=== PATIENT | male | born 1950 | race Caucasian/White ===

== ENCOUNTER 2018-08-03 08:32 | Outpatient (CLI) | payer MEDICARE, OTHER ==
--- NOTE | 2018-08-03 10:37 | ULT ---
GALLBLADDER ULTRASOUND: CLINICALLY INDICATIONS: Epigastric pain. FINDINGS: No acute gallbladder pathology of focal hepatic lesion. Within the right kidney, there is a mildly c omplex appearing cyst, approximately 1.8 cm in diameter. No ascites. The common duct is normal, oma suring 4 mm. IMPRESSION: 1. No acute gallbladder pathology. 2. Incidental note of a mildly complex right renal cyst. Recommend a dedicated follow-up renal ultrasound to further evaluate. CODE T POS: TPC
== END 2018-08-03 08:33 | disposition home or self-care (01) ==
LOC: BICULT 08:32
PROVIDERS: ATTEND Family Medicine
DX: R10.13 Epigastric pain (principal)
CPT/HCPCS: 76705

== ENCOUNTER 2018-08-17 07:12 | Outpatient (CLI) | payer MEDICARE, OTHER ==
--- NOTE | 2018-08-17 07:49 | ULT ---
FExam: Bilateral renal ultrasound HISTORY: Evaluate renal cyst COMPARISON: 08/03/2018, right upper quadrant ultrasound FINDINGS: Right kidney: Normal cortical echotexture. No hydronephrosis. Anechoic focus in the upper pole pelvis , measuring 1.7 x 1.5 x 1.7 cm, compatible with a cyst. Right kidney measurements: 11.4 x 6.0 x 6.2 cm Left kidney: Normal cortical echotexture. No hydronephrosis Left kidney measurements 12.9 x 5.8 x 6.1 cm Urinary bladder: Normal mucosa. IMPRESSION: 1. Stable slightly complex cyst in the right upper pole pelvis 2. No hydronephrosis
== END 2018-08-17 07:13 | disposition home or self-care (01) ==
LOC: BICULT 07:12
PROVIDERS: ATTEND Family Medicine
DX: N28.1 Cyst of kidney, acquired (principal)
CPT/HCPCS: 76770

== ENCOUNTER 2019-03-02 19:04 | Inpatient (IN) | payer MEDICARE, OTHER ==
--- NOTE | 2019-03-02 20:04 | RAD ---
Left hand, 3 view INDICATION: Wound, edema FINDINGS: Soft tissue prominence and air density is present involving the left hand. No evidence of u nderlying osseous destructive lesion. No radiopaque foreign body is visualized. IMPRESSION: Findings indicative of soft tissue infection of the left hand with air density. Recommend clinical co rrelation. No underlying osseous destructive lesion visualized. Transcribed Date/Time: 03/02/2019 8:09 PM
[2019-03-02] MEDS ORDERED: Morphine 4 MG/ML VIAL ONE (20:06)
[2019-03-02] MEDS ORDERED: cefTRIAXone\\ROCEPHIN 1 GM VIAL ONE (20:06)
[2019-03-02 20:10] LABS: #Eosinphils 0.1 thou/uL (0.0-0.7); #Lymphocytes 1.6 thou/uL (1.20-3.40); #Monocytes 0.9 thou/uL (0.11-0.59); #Neutrophils 7.9 thou/uL (1.40-6.50); %Basophils 0.1 % (0.0-1.0); %Eosinophils 1.1 % (0.0-10.0); %Lymphocytes 14.9 % (21.0-51.0); %Monocytes 8.2 % (0.0-10.0); %Neutrophils 75.7 % (42.0-75.0); Hemoglobin 16.3 g/dL (14.0-18.0); Mean Corpuscular HGB CONC 35.3 g/dL (32.0-36.0); Mean Corpuscular Hemoglobin 32.8 pg (27.0-31.0); Mean Platelet Volume 7.3 fL (7.4-10.4); Platelet Count 231 thou/uL (130-400); RBC Distribution Width 12.2 % (11.5-14.5); Red Blood Cell (RBC) Count 4.96 mill/uL (4.70-6.10); White Blood Cell (WBC) Count 10.5 thou/uL (4.8-10.8)
[2019-03-02 20:32] LABS: ALT (SGPT) 28 U/L (8-55); AST (SGOT) 26 U/L (5-34); Albumin 4.6 g/dL (3.4-4.8); Alkaline Phosphatase 50 U/L (40-110); Anion Gap 13 mmol/L (10-20); BUN (Urea Nitrogen) 11 mg/dL (8.4-25.7); Calc. Creatinine Clearance 0 mL/min (70-130); Calcium 9.5 mg/dL (7.8-10.44); Carbon Dioxide 23 mmol/L (23-31); Chloride 101 mmol/L (98-107); Estimated GFR-MDRD 89; Glucose 127 mg/dL (80-115); Potassium 3.2 mmol/L (3.5-5.1); Protein, Total 7.6 g/dL (5.8-8.1); Sodium 134 mmol/L (136-145)
[2019-03-02] MEDS ORDERED: Ondansetron ODT 4 MG TAB SL PRN (22:16)
[2019-03-02] MEDS ORDERED: Ondansetron PF 4 MG/2 ML Vial IVP PRN ×2 (22:16→23:16)
[2019-03-02] MEDS ORDERED: Morphine 4 MG/ML VIAL SLOW IVP PRN (22:18)
[2019-03-02 22:22] VITALS: BMI 29.5
[2019-03-02] MEDS ORDERED: Potassium Chloride 20 MEQ in Premix Bag 1 BAG IVPB SCH (23:00)
[2019-03-02] MEDS ORDERED: Ondansetron ODT 4 MG TAB PO PRN (23:16)
[2019-03-02] MEDS ORDERED: Vancomycin HCl 1 GM in Premix Bag 1 BAG IVPB SCH (23:30)
--- NOTE | 2019-03-03 00:30 | HP ---
TIME OF ASSESSMENT: 2199. PRIMARY CARE PHYSICIAN: Dudley Haile MD. REASON FOR ADMISSION: Left hand cellulitis. HISTORY OF PRESENT ILLNESS: Mr. Camara is a pleasant 68-year-old gentleman who presents after sustaining a puncture wound to the thenar aspect of the left hand yesterday. He woke up this morning with left hand swelling and redness. He was seen at an urgent care facility this morning and treated with Rocephin IM, also given a prescription for Bactrim and rifampin. The patient was advised to come into the emergency department if his symptoms worsen. As the day went on, the patient reports noting progressive worsening of the swelling causing the volar aspect to have a purple appearance. He reports redness extending up his arm towards to his elbow and then eventually extending further up his arm towards the axilla. The patient reports feeling generally unwell with fatigue, malaise, and nausea. He opted to come to the emergency department and on arrival was noted to have a low-grade temperature of 99.5. Otherwise, vital signs were normal. The patient states he did have a temperature of 100.5 at home. He underwent laboratory studies which showed a normal white blood cell count, however, he did have a have left shift with neutrophils of 75.7. Lactic acid was normal at 0.9. He underwent an x-ray of the left hand showing findings indicative of soft tissue infection of the left hand with air density. No underlying osseous destructive lesions present. He was started on IV antibiotics with vancomycin and Rocephin. Also given IV morphine for pain. The case was discussed with Dr. Hidalgo who advised to continue with IV antibiotics with plans to assess the patient in the morning. Case was discussed between Dr. Adhikari and Dr. Monzon of [facility]. REVIEW OF SYSTEMS: Apart from those mentioned above in HPI, the patient states he has otherwise felt well. Denies any vomiting. No chest pain, palpitations, or shortness of breath. Reports having a good appetite. Denies any abdominal pain or cramping. No headaches or dizziness. Has been moving his bowels as normal. No urinary symptoms. All other review of systems are negative. Of note, he denies having any altered sensation in hand and the pain has significantly improved. His general fatigue and malaise have also improved significantly since receiving treatment in the emergency department. PAST MEDICAL HISTORY: 1. Hypertension. 2. GERD. 3. Arthropathy. 4. Previous smoker. PAST SURGICAL HISTORY: 1. Esophageal dilation. 2. Foot surgery. SOCIAL HISTORY: The patient formally dipped, but quit 2 years ago. Denies any drug use. Reports rare alcohol consumption. ALLERGIES: NO KNOWN DRUG ALLERGIES. CURRENT MEDICATIONS: 1. Losartan/Hydrochlorothiazide. 2. Naproxen. 3. Bactrim. 4. Rifampin. 5. Mupirocin. PHYSICAL EXAMINATION: GENERAL: The patient appears well developed, well nourished, is in no acute distress. VITAL SIGNS: Temperature 99.1, pulse 63, respirations 18, O2 saturation 96% on room air, blood pressure 141/90. HEENT: Normocephalic and atraumatic. Pupils are equal, round, reactive to light. Sclerae without icterus. Oropharynx is clear. NECK: Supple without lymphadenopathy. LUNGS: Clear to auscultation bilaterally without wheezes, rales, or rhonchi. CARDIAC: Regular rate and rhythm without audible murmurs, rubs, or gallops. ABDOMEN: Soft, nontender, nondistended. Normoactive bowel sounds present. EXTREMITIES: Left upper extremity notable for redness, swelling of the left hand involving the third through fifth metatarsal region with a puncture wound on the hypothenar eminence. No discharge or drainage. No bleeding. Sensation intact. Erythema extending up along the ulnar aspect towards the elbow with slight streaking along the mid inner arm. NEUROLOGIC: Sensation intact. Alert and oriented x3. No neuro deficits. LABORATORY DATA: White blood count 10.5, hemoglobin 16.3, hematocrit 46.1, platelets 231, neutrophils 75.7%. Sodium 134, potassium 3.2, BUN 11, creatinine 0.86, GFR 89, glucose 127, lactic acid 0.9, total bilirubin 2, AST 26, ALT 28, alkaline phosphatase 50. CRP 8.07, albumin 4.6. IMAGING STUDIES: As mentioned above in HPI. IMPRESSION AND PLAN: Mr. Camara is a very pleasant 68-year-old gentleman who is being admitted for management of the following; 1. Left hand cellulitis. We will continue IV antibiotics. The patient will be seen by Dr. Hidalgo in the morning. Symptomatically significantly improved. We will repeat lactic acid with morning labs. 2. Hypertension. Monitor blood pressure and resume home medications once verified. 3. Hypokalemia. Potassium was 3.2. We will replace and monitor. We will add magnesium to labs done today. 4. Slight hyperbilirubinemia. Total bilirubin of 2.0. LFTs otherwise unremarkable. We will add on the lipase. The patient without any abdominal pain. We will repeat CMP with morning labs. 5. Gastroesophageal reflux disease. Famotidine 20 mg b.i.d. 6. Deep venous thrombosis prophylaxis. Mechanical sequential compression devices. 7. Code status is full. His surrogate decision maker is his , Cecilia Camara. The patient's case was discussed with Dr. Joel who agrees upon care as described above. Job ID: [id number]
[2019-03-03] MEDS ORDERED: Vancomycin HCl 1 GM in Premix Bag 1 BAG IVPB SCH (05:00)
[2019-03-03 05:32] LABS: #Eosinphils 0.2 thou/uL (0.0-0.7); #Lymphocytes 1.4 thou/uL (1.20-3.40); #Monocytes 0.7 thou/uL (0.11-0.59); %Basophils 0.3 % (0.0-1.0); %Eosinophils 2.3 % (0.0-10.0); %Lymphocytes 16.9 % (21.0-51.0); %Monocytes 8.3 % (0.0-10.0); %Neutrophils 72.2 % (42.0-75.0); Hemoglobin 15.4 g/dL (14.0-18.0); Mean Corpuscular HGB CONC 35.1 g/dL (32.0-36.0); Mean Corpuscular Hemoglobin 32.9 pg (27.0-31.0); Mean Corpuscular Volume 93.8 fL (78.0-98.0); Mean Platelet Volume 7.2 fL (7.4-10.4); Platelet Count 206 thou/uL (130-400); RBC Distribution Width 12.2 % (11.5-14.5); Red Blood Cell (RBC) Count 4.67 mill/uL (4.70-6.10); White Blood Cell (WBC) Count 8.3 thou/uL (4.8-10.8)
[2019-03-03 05:50] LABS: Lactic Acid 0.8 mmol/L (0.5-2.2)
[2019-03-03 05:54] LABS: ALT (SGPT) 23 U/L (8-55); AST (SGOT) 22 U/L (5-34); Albumin 4.1 g/dL (3.4-4.8); Alkaline Phosphatase 47 U/L (40-110); Anion Gap 12 mmol/L (10-20); BUN (Urea Nitrogen) 10 mg/dL (8.4-25.7); Bilirubin, Total 1.1 mg/dL (0.2-1.2); Calc. Creatinine Clearance 112 mL/min (70-130); Calcium 8.9 mg/dL (7.8-10.44); Carbon Dioxide 24 mmol/L (23-31); Chloride 102 mmol/L (98-107); Estimated GFR-MDRD 85; Globulin 2.8 g/dL (2.4-3.5); Glucose 109 mg/dL (80-115); Potassium 3.5 mmol/L (3.5-5.1); Protein, Total 6.9 g/dL (5.8-8.1); Sodium 134 mmol/L (136-145)
[2019-03-03] MEDS ORDERED: cefTRIAXone\\ROCEPHIN 1 GM VIAL ONE (09:15)
[2019-03-03] MEDS: cefTRIAXone\\ROCEPHIN 1 GM in Sodium Chloride 0.9% 100 ML IVPB SCH ×2 (09:18→20:49)
[2019-03-03] MEDS: Famotidine 20 MG TAB PO SCH ×2 (09:24→20:48)
--- NOTE | 2019-03-03 10:01 | CON ---
DATE OF CONSULTATION: This is August Beckwith PA-C dictating a report for Steve Hidalgo MD. HISTORY OF PRESENT ILLNESS: We were asked by the hospitalist to see the patient. The patient was golfing the other day, and on the 1st hole, hit his ball into the rough. He stuck his hand into the [place] grass and received a puncture wound to the left palm. Yesterday, he was quite swollen and had redness up into his axilla on that left arm, but today, the swelling is down quite a bit. He still has this tenderness to the palmar aspect where his puncture wound is at, but looking at the son, the antibiotics have definitely helped his swelling. He is able to make a fist now and he states he can see his knuckles where as yesterday he was unable to. His pain also has improved with antibiotics. No numbness, tingling, or sensory deficits in that left hand. PAST MEDICAL HISTORY: Hypertension, GERD, past smoker. PAST SURGICAL HISTORY: Esophageal dilation, foot surgery. SOCIAL HISTORY: Past chewing tobacco user. No illicit drug use and rare EtOH usage. ALLERGIES: NO KNOWN DRUG ALLERGIES. CURRENT MEDICATIONS: 1. Losartan/hydrochlorothiazide. 2. Naprosyn. 3. Bactrim. 4. Rifampin. 5. Mupirocin. REVIEW OF SYSTEMS: No chest pain or shortness of breath. No bowel or bladder problems. No respiratory issues. We discussed review of systems. His only complaint is left hand injury pain. This is first visit to the hospital in 50 years. Rest review of systems is negative. PHYSICAL EXAMINATION: GENERAL: Well-nourished, well-developed male, alert, pleasant, no acute distress. Speech clear. Affect pleasant. Answers questions appropriately. He is alert and oriented x3. HEENT: Normal exam. Face symmetric. Tongue midline. NECK: Supple. Trachea midline. RESPIRATORY: No distress. Respirations are 16. EXTREMITIES: Upper extremities; equal size, shape, and symmetry. Normal bulk and tone with exception of left upper extremity. He does have some swelling to the palmar aspect with an obvious puncture wound. The patient is able to shank pinner and extend his digits fairly well. No sensory deficits. He does have pain with palpation over that palmar aspect. His redness son to the upper extremity have diminished with antibiotics as has quite a bit of a swelling. ASSESSMENT: Wound infection, left palmar aspect secondary to [place] grass puncture. PLAN: I am going to discuss the case with Dr. Hidalgo. I told the patient we will keep him n.p.o. until Dr. Hidalgo sees the patient. He may need a debridement of that hand, but with the antibiotics helping, he may be able to forego that. The patient did put some peroxide on it after he removed the [place] grass and soaked his hand in some Epsom salts and remarkably he is able to finish his golf round even though he did this on the 1st hole. Surgical I and D discussed with the patient, but I will await Dr. Hidalgo evaluation. I did hold a spot in the OR for patient. Job ID: [id number]
[2019-03-03] MEDS: Vancomycin HCl 1.5 GM in Sodium Chloride 0.9% 250 ML 300 ML IVPB SCH ×2 (10:46→21:51)
--- NOTE | 2019-03-03 10:54 | PRG ---
DATE OF SERVICE: 03/03/2019 SUBJECTIVE: The patient is seen and examined at the bedside. He is doing significantly better. His swelling of the right hand is down. The pain is significantly improved. OBJECTIVE: VITAL SIGNS: Blood pressure is 121/73, pulse is 65, temperature is 97.9, respirations 18, and O2 saturation is 95% on room air. HEENT: His head is atraumatic and normocephalic. Eyes are PERRLA. Sclerae are nonicteric. Oral mucosa is moist. NECK: Supple. LUNGS: Clear. HEART: S1-S2, normal. No S3. No S4. ABDOMEN: Soft, nontender, and nondistended. EXTREMITIES: Left still swollen and tender, but erythema is significantly improved. It was almost up to his left axilla and now it is just localized to the left hand and little bit of forearm. The swelling is improved too. NEUROLOGICAL: He is alert and oriented x4. There are no any motor deficits. LABORATORY DATA: White count of 8.3, hemoglobin 15.4, hematocrit 43.8, and platelet count is 208. Normal chemistry except for sodium, which is 134. Microbiology; two blood cultures are back and they are negative. IMPRESSION: 1. Left hand cellulitis. 2. Hypertension. 3. Hypokalemia. 4. Slight hyperbilirubinemia. 5. Gastroesophageal reflux disease. PLAN: The surgeon wants to evaluate him for possible debridement of this left hand. We will continue our antibiotic, which is Rocephin and vancomycin. For now, we will restart his lisinopril/hydrochlorothiazide 20/12.5 mg one tablet once a day. Job ID: [id number]
[2019-03-03] MEDS ORDERED: Dexamethasone 20 MG/5 ML VIAL ONE (12:56)
[2019-03-03] MEDS ORDERED: Lidocaine 1% PF 5 ML VIAL ONE (12:56)
[2019-03-03] MEDS ORDERED: PROPOFOL 200 MG/20 ML VIAL ONE (12:56)
[2019-03-03] MEDS ORDERED: Ondansetron PF 4 MG/2 ML Vial ONE (12:56)
[2019-03-03] MEDS ORDERED: Fentanyl 100 MCG/2 ML VIAL ONE (14:14)
[2019-03-03] MEDS ORDERED: Bacitracin Zinc Ointment 30 gm TUBE ONE (14:23)
[2019-03-03] MEDS ORDERED: Bupivacaine PF 0.5% 30 ML VIAL ONE (14:23)
[2019-03-03] MEDS ORDERED: Sodium Chloride 0.9% 30 ML ONE (14:23)
[2019-03-03] MEDS ORDERED: Promethazine HCl 25 MG/ML VIAL SLOW IVP PRN (15:50)
[2019-03-03] MEDS ORDERED: Morphine Sulfate 2 MG/ML SYRINGE SLOW IVP PRN (15:50)
[2019-03-03] MEDS ORDERED: PACU-Morphine 4MG/ML VIAL SLOW IVP PRN (15:50)
[2019-03-03] MEDS ORDERED: Promethazine HCl 25 MG/ML VIAL IM PRN (15:50)
[2019-03-03] MEDS ORDERED: Ondansetron HCl/PF 4 MG/2 ML Vial IVP PRN (15:50)
[2019-03-03] MEDS ORDERED: Ketorolac Tromethamine 30 MG/ML VIAL IVP PRN (15:50)
[2019-03-03] MEDS ORDERED: Meperidine HCl/PF 25 MG/ML VIAL SLOW IVP PRN ×2 (15:50→17:27)
[2019-03-03] MEDS ORDERED: HYDROmorphone 2 MG/ML VIAL SLOW IVP PRN (15:50)
[2019-03-03] MEDS ORDERED: Fentanyl 100 MCG/2 ML VIAL SLOW IVP PRN (17:27)
--- NOTE | 2019-03-03 23:20 | OP ---
DATE OF PROCEDURE: 03/03/2019 PREOPERATIVE DIAGNOSIS: Left small finger abscess tissue. The patient had what was described as an "grass thorn" into his palmar small finger with the tip pointed proximally at the level of the A1 felipa. This was 2.5 days prior to evaluation and he already had 36 hours of IV antibiotics to no avail. He had fluctuance beginning in area just proximal to his A1 felipa where he had a 2 to 3 mm eschar and it was felt he had abscess that did not respond. PROCEDURES PERFORMED: 1. Digital nerve neuroplasty. 2. Incision and drainage of abscess. 3. Palmar arthroplasty, MP joint, left small finger. DESCRIPTION OF PROCEDURE: After successful general endotracheal anesthesia, limb was prepped and draped. He was given 10 mL of 0.5% Marcaine field block proximal to where I thought the pus/purulence propagated. We made a zigzag incision centered over his A1 felipa 5 mm distal and then 2 cm proximal. We found mucopurulence escaped to mid distally underneath the skin, especially underneath the interosseous, palmar, and retracted this as far back as 2.5 cm proximal to the A1 felipa where the mucopurulence stopped. There was some denuded muscle that we then debrided after we drained abscess leading to a deep debridement. We had to perform a digital neuroplasty more proximally and distally the wound as the digital nerve was surrounded by a large amount of pus in order to protect them. Once we had done this, we then noticed that the joint was at the base of the abscess, so we made a little small window, retracted the junction of the A1 felipa, flexor tendon, and the volar plate making a small arthrotomy and noticed there was no gross infection, but we performed a culture here. We had already performed a culture of the abscess cavity. We also entered the primary flexor sheath and saw the abnormality. We flexed to extend the PIP joint. There was no mucopurulence, so we stopped here. We freed this, debrided with tenotomy scissors, [place] blade, subcutaneous fat, some deep interosseous muscle that was contaminated under pressure, and then the joint. We irrigated with 3 L of normal saline and Pulsavac pressure. There was no purulence seen whatsoever after this. No necrotic tissue, so we released the tourniquet. The patient then had the specimen from the abscess cavity sent for, and we then had the tourniquet deflated and hemostasis obtained. Because now we had a 6 cm wound that was 2 cm wide after debridement of the skin and subcutaneous tissue, we then placed a VAC dressing white sponge over the tendon, interosseous, flexor tendon complex and black sponge over this and had excellent suction. The patient left the operating room without evidence of anesthetic or operative complication. Job ID: [id number]
[2019-03-04 08:32] LABS: Vancomycin, Trough 12.3 ug/mL
[2019-03-04] MEDS ORDERED: cefTRIAXone\\ROCEPHIN 1 GM in Sodium Chloride 0.9% 100 ML IVPB SCH (08:45)
[2019-03-04] MEDS: cefTRIAXone\\ROCEPHIN 1 GM in Sodium Chloride 0.9% 100 ML IVPB SCH ×2 (08:51→19:55)
[2019-03-04] MEDS: Famotidine 20 MG TAB PO SCH ×2 (09:01→20:46)
[2019-03-04 09:32] LABS: #Basophils 0.1 thou/uL (0.0-0.2); #Eosinphils 0.1 thou/uL (0.0-0.7); #Lymphocytes 1.6 thou/uL (1.20-3.40); #Monocytes 0.5 thou/uL (0.11-0.59); #Neutrophils 5.5 thou/uL (1.40-6.50); %Basophils 0.7 % (0.0-1.0); %Eosinophils 1.7 % (0.0-10.0); %Lymphocytes 20.6 % (21.0-51.0); %Monocytes 5.9 % (0.0-10.0); Hemoglobin 14.7 g/dL (14.0-18.0); Mean Corpuscular HGB CONC 35.9 g/dL (32.0-36.0); Mean Corpuscular Hemoglobin 33.5 pg (27.0-31.0); Mean Corpuscular Volume 93.3 fL (78.0-98.0); Mean Platelet Volume 7.4 fL (7.4-10.4); Platelet Count 212 thou/uL (130-400); Red Blood Cell (RBC) Count 4.39 mill/uL (4.70-6.10); White Blood Cell (WBC) Count 7.7 thou/uL (4.8-10.8)
[2019-03-04] MEDS: Vancomycin HCl 1.5 GM in Sodium Chloride 0.9% 250 ML 300 ML IVPB SCH ×2 (09:56→20:46)
[2019-03-04 09:57] LABS: Anion Gap 14 mmol/L (10-20); BUN (Urea Nitrogen) 12 mg/dL (8.4-25.7); Calc. Creatinine Clearance 106 mL/min (70-130); Carbon Dioxide 24 mmol/L (23-31); Chloride 103 mmol/L (98-107); Estimated GFR-MDRD 80; Glucose 153 mg/dL (80-115); Potassium 3.6 mmol/L (3.5-5.1); Sodium 137 mmol/L (136-145)
--- NOTE | 2019-03-04 13:19 | PRG ---
DATE OF SERVICE: 03/04/2019 SUBJECTIVE: The patient is seen and examined at the bedside. He is feeling better after his left hand was debrided by Dr. iHdalgo yesterday. OBJECTIVE: VITAL SIGNS: Blood pressure is temperature is 99.2, that is his maximal temperature; respiratory rate is 18; pulse is 57; O2 saturation is 96% on room air. HEENT: His head is atraumatic and normocephalic. Eyes are PERRLA. Sclerae are nonicteric. Oral mucosa is moist. NECK: Supple. LUNGS: Clear. HEART: S1 and S2 normal. ABDOMEN: Soft, nontender, nondistended. EXTREMITIES: Left hand is wrapped. The wound VAC is in place. NEUROLOGICAL: He is alert and oriented x4. There are no any motor or sensory deficits. LABORATORY DATA: White count of 7.7, hemoglobin 14.7, hematocrit 41.0, platelet count 212. Normal electrolytes. Glucose 153. Normal kidney function. Preliminary bacterial culture from yesterday procedure, no growth at 12 hours. Anaerobic culture is still pending. Two blood cultures negative. IMPRESSION: 1. Left hand cellulitis with abscess. He had digital nerve neuroplasty incision and drainage of an abscess and palmar arthroplasty, MP joint and left small finger done by Dr. Hidalgo yesterday. 2. Hypertension. 3. Hypokalemia, resolved. 4. Gastroesophageal reflux disease. PLAN: Continue his vancomycin and Rocephin at this point. Follow cultures. Continue pain management p.r.n. with fentanyl and morphine p.r.n. Job ID: [id number]
[2019-03-05] MEDS: Vancomycin HCl 1.5 GM in Sodium Chloride 0.9% 250 ML 300 ML IVPB SCH ×2 (08:27→20:58)
[2019-03-05] MEDS: Lisinopril/Hydrochlorothiazide 20 mg/12.5 mg Tablet PO SCH (08:29)
[2019-03-05] MEDS: Famotidine 20 MG TAB PO SCH ×2 (08:30→20:58)
[2019-03-05] MEDS: cefTRIAXone\\ROCEPHIN 1 GM in Sodium Chloride 0.9% 100 ML IVPB SCH ×2 (09:45→19:59)
--- NOTE | 2019-03-05 18:58 | PDOC.HOSPP ---
- Subjective Encounter Date: 03/05/19 Encounter Time: 09:20 Subjective: Pt seen for followup re: LUE cellulitis. Feels better. - Objective Vital Signs & Weight: Vital Signs (12 hours) Temp Pulse Resp BP BP Pulse Ox 03/05/19 08:29 57 L 165/93 H 03/05/19 08:00 98.1 F 03/05/19 07:31 98.1 F 57 L 16 165/93 H 97 Weight Weight 217 lb 6 oz I&O: 03/04/19 03/05/19 03/06/19 06:59 06:59 06:59 Intake Total 800 720 480 Output Total 300 Balance 500 720 480 Result Diagrams: 03/04/19 09:15 03/04/19 09:15 Additional Labs: Labs and MARs reviewed by ks Hospitalist ROS - Review of Systems Constitutional: denies: fever, chills, sweats, weakness, malaise Cardiovascular: denies: chest pain, palpitations, orthopnea, paroxysmal noc. dyspnea, edema, light headedness - Medication Medications: Active Medications Generic Name Dose Route Start Last Admin Trade Name Freq PRN Reason Stop Dose Admin Famotidine 20 mg 03/03/19 09:00 03/05/19 08:30 Pepcid PO 20 mg BID ANISA Administration Lisinopril/HCTZ 1 tab 03/05/19 09:00 03/05/19 08:29 Prinizide 20-12.5 PO 1 tab DAILY ANISA Administration Ceftriaxone Sodium 1 gm/ 100 mls @ 200 mls/hr 03/03/19 08:00 03/05/19 09:45 Sodium Chloride IVPB 100 mls 0800,2000 ANISA Administration Vancomycin HCl 1.5 gm/ Sodium 300 mls @ 200 mls/hr 03/03/19 09:00 03/05/19 08 :27 Chloride IVPB 300 mls Q12HR ANISA Administration Sodium Chloride 10 ml 03/02/19 23:16 03/05/19 08:31 Flush - Normal Saline IVF 10 ml Q12HR PRN Administration Saline Flush Sodium Chloride 10 ml 03/02/19 23:16 03/03/19 00:00 Flush - Normal Saline IVF 10 ml PRN PRN Administration Saline Flush - Exam General Appearance: NAD Eye: anicteric sclera ENT: moist mucosa Neck: supple, no JVD Heart: RRR, no rubs Respiratory: CTAB, no wheezes Gastrointestinal: soft, non-tender Extremities - other findings: L hand dressing, wound vac Psychiatric: normal affect, normal behavior Hosp A/P (1) Cellulitis of left hand Code(s): L03.114 - CELLULITIS OF LEFT UPPER LIMB Status: Acute (2) Abscess of left little finger Code(s): L02.512 - CUTANEOUS ABSCESS OF LEFT HAND Status: Acute (3) HTN (hypertension) Code(s): I10 - ESSENTIAL (PRIMARY) HYPERTENSION Status: Chronic - Plan continue antibiotics, out of bed/ambulate Continue IV vancomycin and IV ceftriaxone, follow cultures. BP high, start amlodipine. s/p I&D of abscess.
[2019-03-05] MEDS ORDERED: Amlodipine 5 MG TAB PO SCH (19:15)
[2019-03-05] MEDS ORDERED: hydrALAZINE 25 MG TAB PO PRN (22:07)
[2019-03-06] MEDS ORDERED: Amlodipine 5 MG TAB PO SCH (09:00)
[2019-03-06] MEDS: Lisinopril/Hydrochlorothiazide 20 mg/12.5 mg Tablet PO SCH (09:14)
[2019-03-06] MEDS: cefTRIAXone\\ROCEPHIN 1 GM in Sodium Chloride 0.9% 100 ML IVPB SCH ×2 (09:15→20:36)
[2019-03-06] MEDS: Famotidine 20 MG TAB PO SCH ×2 (09:15→20:34)
[2019-03-06] MEDS: Vancomycin HCl 1.5 GM in Sodium Chloride 0.9% 250 ML 300 ML IVPB SCH ×2 (10:01→21:58)
[2019-03-06] MEDS ORDERED: Loperamide HCl 2 MG CAP PO PRN (14:14)
[2019-03-06] MEDS ORDERED: Loperamide HCl 2 MG CAP PO SCH (14:15)
[2019-03-06] MEDS ORDERED: Acetaminophen 650 MG/20.3 ML UDCUP PO PRN (16:17)
[2019-03-06] MEDS: hydrALAZINE 25 MG TAB PO SCH ×2 (16:59→20:34)
--- NOTE | 2019-03-06 18:44 | PDOC.HOSPP ---
- Subjective Encounter Date: 03/06/19 Encounter Time: 10:00 Subjective: Pt seen for followup re: LUE cellulitis. Has diarrhea. No fevers. - Objective Vital Signs & Weight: Vital Signs (12 hours) Temp Pulse Resp BP BP BP Pulse Ox 03/06/19 17:00 98.4 F 71 18 155/97 H 03/06/19 16:59 67 161/99 H 03/06/19 16:00 98.7 F 68 14 161/99 H 96 03/06/19 12:00 98.2 F 79 18 155/94 H 97 03/06/19 09:16 76 167/115 H 03/06/19 09:14 76 154/102 H 03/06/19 09:00 154/102 H 03/06/19 08:00 98.2 F 03/06/19 06:45 76 167/115 H Weight Weight 217 lb 6 oz I&O: 03/05/19 03/06/19 03/07/19 06:59 06:59 06:59 Intake Total 720 1620 2030 Balance 720 1620 2030 Result Diagrams: 03/04/19 09:15 03/04/19 09:15 Additional Labs: Labs and MARs reviewed by dc Hospitalist ROS - Review of Systems Cardiovascular: denies: chest pain, palpitations, orthopnea, paroxysmal noc. dyspnea, edema, light headedness Gastrointestinal: reports: diarrhea. denies: nausea, vomiting, abdominal pain, constipation, melena, hematochezia - Medication Medications: Active Medications Generic Name Dose Route Start Last Admin Trade Name Freq PRN Reason Stop Dose Admin Acetaminophen 650 mg 03/06/19 16:17 03/06/19 17:00 Tylenol Elixir PO 650 mg Q6H PRN Administration Pain Famotidine 20 mg 03/03/19 09:00 03/06/19 09:15 Pepcid PO 20 mg BID ANISA Administration Lisinopril/HCTZ 1 tab 03/05/19 09:00 03/06/19 09:14 Prinizide 20-12.5 PO 1 tab DAILY ANISA Administration Hydralazine HCl 25 mg 03/06/19 17:00 03/06/19 16:59 Apresoline PO 25 mg QID ANISA Administration Ceftriaxone Sodium 1 gm/ 100 mls @ 200 mls/hr 03/03/19 08:00 03/06/19 09:15 Sodium Chloride IVPB 100 mls 0800,2000 ANISA Administration Vancomycin HCl 1.5 gm/ Sodium 300 mls @ 200 mls/hr 03/03/19 09:00 03/06/19 10 :01 Chloride IVPB 300 mls Q12HR ANISA Administration Sodium Chloride 10 ml 03/02/19 23:16 03/06/19 09:22 Flush - Normal Saline IVF 10 ml Q12HR PRN Administration Saline Flush Sodium Chloride 10 ml 03/02/19 23:16 03/03/19 00:00 Flush - Normal Saline IVF 10 ml PRN PRN Administration Saline Flush - Exam General Appearance: NAD Eye: anicteric sclera ENT: normocephalic atraumatic Neck: supple Heart: RRR, no gallops Respiratory: CTAB Gastrointestinal: soft, non-tender Extremities - other findings: L hand wound vac Neurological: no weakness Psychiatric: normal affect, normal behavior Hosp A/P (1) Cellulitis of left hand Code(s): L03.114 - CELLULITIS OF LEFT UPPER LIMB Status: Acute (2) Abscess of left little finger Code(s): L02.512 - CUTANEOUS ABSCESS OF LEFT HAND Status: Acute (3) HTN (hypertension) Code(s): I10 - ESSENTIAL (PRIMARY) HYPERTENSION Status: Chronic - Plan continue antibiotics, out of bed/ambulate Start Imodium (C. diff negative). Continue IV vancomycin and IV ceftriaxone, follow cultures. BP high, start hydralazine (pt does not want amlodipine). s/p I&D of abscess.
[2019-03-06] MEDS ORDERED: cefTRIAXone\\ROCEPHIN 1 GM in Sodium Chloride 0.9% 100 ML IVPB SCH (20:00)
[2019-03-07 06:08] LABS: #Eosinphils 0.4 thou/uL (0.0-0.7); #Lymphocytes 1.6 thou/uL (1.20-3.40); #Monocytes 0.4 thou/uL (0.11-0.59); #Neutrophils 3.5 thou/uL (1.40-6.50); %Basophils 0.7 % (0.0-1.0); %Eosinophils 7.2 % (0.0-10.0); %Lymphocytes 26.5 % (21.0-51.0); %Monocytes 6.7 % (0.0-10.0); Hemoglobin 15.7 g/dL (14.0-18.0); Mean Corpuscular HGB CONC 35.9 g/dL (32.0-36.0); Mean Corpuscular Hemoglobin 33.3 pg (27.0-31.0); Mean Corpuscular Volume 92.7 fL (78.0-98.0); Mean Platelet Volume 7.2 fL (7.4-10.4); Platelet Count 253 thou/uL (130-400); RBC Distribution Width 11.9 % (11.5-14.5); Red Blood Cell (RBC) Count 4.72 mill/uL (4.70-6.10); White Blood Cell (WBC) Count 5.9 thou/uL (4.8-10.8)
[2019-03-07] MEDS: hydrALAZINE 25 MG TAB PO SCH ×4 (07:30→22:02)
[2019-03-07] MEDS: Famotidine 20 MG TAB PO SCH ×2 (07:30→22:02)
[2019-03-07] MEDS: Lisinopril/Hydrochlorothiazide 20 mg/12.5 mg Tablet PO SCH (07:33)
[2019-03-07] MEDS: Vancomycin HCl 1.5 GM in Sodium Chloride 0.9% 250 ML 300 ML IVPB SCH ×2 (08:25→22:03)
[2019-03-07] MEDS: cefTRIAXone\\ROCEPHIN 1 GM in Sodium Chloride 0.9% 100 ML IVPB SCH ×2 (08:25→22:01)
--- NOTE | 2019-03-07 13:51 | PDOC.HOSPP ---
- Subjective Encounter Date: 03/07/19 Encounter Time: 07:20 Subjective: Pt seen for followup re: left upper extremity cellulitis. Feels better, no complaints. - Objective Vital Signs & Weight: Vital Signs (12 hours) Temp Pulse Resp BP BP BP Pulse Ox 03/07/19 12:00 98.3 F 82 16 141/95 H 97 03/07/19 10:00 135/89 03/07/19 08:00 98.1 F 76 18 150/105 H 94 L 03/07/19 07:41 94 L 03/07/19 07:33 62 150/102 H 03/07/19 07:30 62 150/105 H 03/07/19 04:00 98.4 F 62 20 155/88 H 94 L Weight Weight 217 lb 6 oz I&O: 03/06/19 03/07/19 03/08/19 06:59 06:59 06:59 Intake Total 1620 2910 Balance 1620 2910 Result Diagrams: 03/07/19 05:48 03/04/19 09:15 Additional Labs: Labs and MARs reviewed by [facility] Hospitalist ROS - Review of Systems Constitutional: denies: fever, chills, sweats, weakness, malaise Musculoskeletal: denies: neck pain, shoulder pain, arm pain, back pain, hand pain, leg pain, foot pain - Medication Medications: Active Medications Generic Name Dose Route Start Last Admin Trade Name Freq PRN Reason Stop Dose Admin Acetaminophen 650 mg 03/06/19 16:17 03/06/19 17:00 Tylenol Elixir PO 650 mg Q6H PRN Administration Pain Famotidine 20 mg 03/03/19 09:00 03/07/19 07:30 Pepcid PO 20 mg BID ANISA Administration Lisinopril/HCTZ 1 tab 03/05/19 09:00 03/07/19 07:33 Prinizide 20-12.5 PO 1 tab DAILY ANISA Administration Hydralazine HCl 25 mg 03/06/19 17:00 03/07/19 07:30 Apresoline PO 25 mg QID ANISA Administration Ceftriaxone Sodium 1 gm/ 100 mls @ 200 mls/hr 03/03/19 08:00 03/07/19 08:25 Sodium Chloride IVPB 100 mls 0800,2000 ANISA Administration Vancomycin HCl 1.5 gm/ Sodium 300 mls @ 200 mls/hr 03/03/19 09:00 03/07/19 08 :25 Chloride IVPB 300 mls Q12HR ANISA Administration Sodium Chloride 10 ml 03/02/19 23:16 03/06/19 09:22 Flush - Normal Saline IVF 10 ml Q12HR PRN Administration Saline Flush Sodium Chloride 10 ml 03/02/19 23:16 03/03/19 00:00 Flush - Normal Saline IVF 10 ml PRN PRN Administration Saline Flush - Exam General Appearance: NAD Eye: anicteric sclera ENT: moist mucosa Neck: supple, no JVD Heart: RRR Respiratory: CTAB, no ronchi Gastrointestinal: soft, non-tender Musculoskeletal: normal tone Psychiatric: normal affect, normal behavior Hosp A/P (1) Cellulitis of left hand Code(s): L03.114 - CELLULITIS OF LEFT UPPER LIMB Status: Acute (2) Abscess of left little finger Code(s): L02.512 - CUTANEOUS ABSCESS OF LEFT HAND Status: Acute (3) HTN (hypertension) Code(s): I10 - ESSENTIAL (PRIMARY) HYPERTENSION Status: Chronic - Plan continue antibiotics, out of bed/ambulate Continue IV vancomycin and IV ceftriaxone, cultures negative so far. BP improved. Wound vac removed last night.
[2019-03-07] MEDS ORDERED: diphenhydrAMINE 50 MG/ML VIAL ONE (15:10)
[2019-03-07] MEDS ORDERED: PROPOFOL 200 MG/20 ML VIAL ONE (15:10)
[2019-03-07] MEDS ORDERED: Bacitracin Zinc Ointment 30 gm TUBE ONE (19:29)
[2019-03-07] MEDS ORDERED: Bupivacaine PF 0.5% 30 ML VIAL ONE (19:29)
[2019-03-07] MEDS ORDERED: Sodium Chloride 0.9% 30 ML ONE (19:29)
[2019-03-07] MEDS ORDERED: cefTRIAXone\\ROCEPHIN 1 GM VIAL ONE (19:53)
[2019-03-07] MEDS ORDERED: Sodium Chloride 0.9% 100 ML ONE (19:53)
[2019-03-07] MEDS ORDERED: Fentanyl 100 MCG/2 ML VIAL ONE (20:10)
[2019-03-07] MEDS ORDERED: Promethazine HCl 25 MG/ML VIAL SLOW IVP PRN (21:31)
[2019-03-07] MEDS ORDERED: Ondansetron HCl/PF 4 MG/2 ML Vial IVP PRN (21:31)
[2019-03-07] MEDS ORDERED: Promethazine HCl 25 MG/ML VIAL IM PRN (21:31)
[2019-03-07] MEDS: Morphine 4 MG/ML VIAL SLOW IVP PRN (22:05)
[2019-03-08] MEDS: cefTRIAXone\\ROCEPHIN 1 GM in Sodium Chloride 0.9% 100 ML IVPB SCH (08:28)
[2019-03-08] MEDS: Morphine 4 MG/ML VIAL SLOW IVP PRN (08:28)
[2019-03-08] MEDS: hydrALAZINE 25 MG TAB PO SCH ×2 (08:31→12:47)
[2019-03-08] MEDS: Famotidine 20 MG TAB PO SCH (08:31)
[2019-03-08] MEDS: Lisinopril/Hydrochlorothiazide 20 mg/12.5 mg Tablet PO SCH (08:40)
[2019-03-08] MEDS: Vancomycin HCl 1.5 GM in Sodium Chloride 0.9% 250 ML 300 ML IVPB SCH (08:41)
--- NOTE | 2019-03-08 08:53 | OP ---
DATE OF PROCEDURE: 03/07/2019 PREOPERATIVE DIAGNOSIS: Left small finger palmar wound, 8 cm. POSTOPERATIVE DIAGNOSIS: Left small finger palmar wound, 8 cm. FINDINGS: No gross infection. Only minimal amount of denuded fat and necrotic skin edge. PROCEDURE PERFORMED: 1. Debridement of wound, 33936. 2. Closure of wound, 54912, 8 cm. COMPLICATIONS: None. TOURNIQUET TIME: Zero. ESTIMATED BLOOD LOSS: 10 mL. INDICATIONS: Patient returns for staged wound management after incision and drainage of abscess five days prior with wound dressing changes one day prior. Wound appeared to have no hematoma, no infection, and no gross necrosis that would inhibit or prohibit or delay closure. DESCRIPTION OF PROCEDURE: After successful general endotracheal anesthesia by [facility], the limb was prepped and draped. No tourniquet inflated. We then inspected the wound, removed the large dressing and packing, and then we prepped and draped, undermined the skin edges. We removed all denuded and early fat loss. The wound edges on the ulnar side have some maceration required a small amount of debridement with a Tarrant blade, 11 blade knife, tenotomy scissors, Adson's, and the Pulsavac irrigation 3 L with antibiotics inside. We obtained hemostasis, closed the wound with the final wound closure level being skin, subcutaneous and the patient left the operating room in a bulky dressing. No evidence of anesthetic or operative complication. Job ID: [id number]
[2019-03-08] MEDS ORDERED: Saccharomyces boulardii 250 MG CAP PO SCH (14:30)
[2019-03-08 15:12] VITALS: BP 134/87; TEMP 98
--- NOTE | 2019-03-09 02:38 | DIS ---
DATE OF ADMISSION: 03/02/2019 DATE OF DISCHARGE: 03/08/2019 PRIMARY CARE PROVIDER: Dudley Haile MD DISCHARGE DIAGNOSES: 1. Left hand cellulitis. 2. Left little finger abscess. 3. Hyponatremia. CONDITION OF PATIENT ON THE DAY OF DISCHARGE: Stable. I assessed Mr. Camara on the day of discharge. He denies any chest pain or shortness of breath. Vital signs are stable. S1 and S2 are heard, regular. Lungs are clear to auscultation bilaterally. CONSULTATIONS DURING HOSPITALIZATION: 1. Orthopedic Surgery, August Beckwith PA-C. 2. Hand surgery, Steve Hidalgo MD. DISCHARGE MEDICATIONS: 1. Naproxen p.r.n. 2. Lisinopril hydrochlorothiazide 20/12.5 mg daily. 3. Mupirocin ointment topically daily. 4. Rifampin 300 mg daily. 5. Bactrim DS one tablet 2 times a day. POST-DISCHARGE FOLLOWUP: The patient is advised to follow up with primary care provider in [address] Hidalgo on March 13, 2019, at 11:15 a.m. HOSPITAL COURSE: Mr. Camara is a pleasant 68-year-old gentleman, who was admitted to [facility] on March 02, 2019, for left hand cellulitis and left little finger abscess. He was treated with intravenous antibiotics. On March 03, he was taken to the operating room by hand surgeon and had digital nerve neuroplasty, incision and drainage of abscess, palm arthroplasty, MP joint, left small finger. He continued to be treated with intravenous antibiotics and on March 07, he was again taken to the operating room for debridement of wound and closure of wound. He has been cleared for discharge by Hand Surgery. Final blood cultures did not show any growth. Bacterial cultures from the finger abscess did not show any growth or anaerobes. The patient had diarrhea during this hospitalization, but his stool was negative for Clostridium difficile. His diarrhea improved. He is being discharged home in a stable condition on empiric antibiotics. Many thanks for allowing me to participate in your patient's care. Please feel free to contact me with any questions or concerns. DISCHARGE DESTINATION: Home. TIME SPENT: Total amount of time spent coordinating this discharge: 32 minutes. Job ID: [id number]
== END 2019-03-08 15:14 | disposition home or self-care (01) | DRG 580 ==
LOC: ERS 19:04 → T4-A 22:15
PROVIDERS: ADMIT Internal Medicine; ATTEND Internal Medicine
PROC: 0KBD0ZZ Excision of Left Hand Muscle, Open Approach (ICD-10-PCS; principal; 2019-03-02)
PROC: 0JBK0ZZ Excision of Left Hand Subcutaneous Tissue and Fascia, Open Approach (ICD-10-PCS; 2019-03-02)
PROC: 01Q60ZZ Repair Radial Nerve, Open Approach (ICD-10-PCS; 2019-03-02)
PROC: 0LN80ZZ Release Left Hand Tendon, Open Approach (ICD-10-PCS; 2019-03-02)
DX: L02.512 Cutaneous abscess of left hand (principal); L03.114 Cellulitis of left upper limb; E87.1 Hypo-osmolality and hyponatremia; I10 Essential (primary) hypertension; K21.9 Gastro-esophageal reflux disease without esophagitis; E87.6 Hypokalemia; E80.6 Other disorders of bilirubin metabolism; Z87.891 Personal history of nicotine dependence; Z79.899 Other long term (current) drug therapy
CPT/HCPCS: 36415; 80048; 80053; 80202; 83605; 83690; 85025; 85652; 86140; 87040; 87070; 87205; 87324; 87449; 96365; 96367; 96375; J0696; J1100; J1200; J2001; J2270; J2405; J2704; J3010; J3370; J3480; J3490; J7050; S0020

== ENCOUNTER 2021-04-23 11:15 | Outpatient (CLI) | payer MEDICARE, OTHER | END 2021-04-23 11:16 | disposition home or self-care (01) | LOC: SCSMRI 11:15 | PROVIDERS: ATTEND Family Medicine | DX: H53.2 Diplopia (principal); G93.0 Cerebral cysts | CPT/HCPCS: 70553; 82565 ==

== ENCOUNTER 2022-02-05 08:33 | Outpatient (CLI) | payer MEDICARE, OTHER ==
[2022-02-05] MEDS ORDERED: Magnevist 469MG/ML 20 ML VIAL ONE (08:54)
== END 2022-02-05 08:34 | disposition home or self-care (01) ==
LOC: TBSIIMAG 08:33
PROVIDERS: ATTEND Neurological Surgery
DX: D35.2 Benign neoplasm of pituitary gland (principal); G93.9 Disorder of brain, unspecified
CPT/HCPCS: 70553; 82565; A9579

== ENCOUNTER 2023-04-07 07:09 | Outpatient (CLI) | payer MEDICARE, OTHER | END 2023-04-07 07:10 | disposition home or self-care (01) | LOC: MRI 07:09 | PROVIDERS: ATTEND Neurological Surgery | DX: D49.7 Neoplasm of unspecified behavior of endocrine glands and other parts of nervous system (principal) | CPT/HCPCS: 70553; 82565 ==

== ENCOUNTER 2025-04-10 07:34 | Outpatient (CLI) | payer MEDICARE, OTHER | END 2025-04-10 07:35 | disposition home or self-care (01) | LOC: CT 07:34 | PROVIDERS: ATTEND Family Medicine | DX: R63.4 Abnormal weight loss (principal); R11.0 Nausea; R53.83 Other fatigue; K57.30 Diverticulosis of large intestine without perforation or abscess without bleeding; R91.8 Other nonspecific abnormal finding of lung field; I25.10 Atherosclerotic heart disease of native coronary artery without angina pectoris | CPT/HCPCS: 74178 ==